=== PATIENT | female | born 1930 | race Caucasian/White ===

== ENCOUNTER 2016-09-27 17:13 | Emergency (ER) | payer MEDICARE, OTHER ==
[~2016-09-27] VITALS: Ht 162.6 cm; Wt 59.1 kg
[~2016-09-27 17:13] MED LIST: AMIO200T PO; APIX5TAB PO; ASCO-294 PO; ASPI-973 PO; CALC600T12 PO; CHOL100045 PO; CYAN500L4 PO; FLAX100038 PO; FOLI0.4T2 PO; IBUP200C PO; LISI10TA PO; MAGN27TA2 PO; METF500T4 PO; METO100T3 PO; SIMV40TA5 PO
[2016-09-27 17:18] VITALS: BP 161/78; PULSE 64; RESP 14; O2SAT 98
--- NOTE | 2016-09-27 17:43 | ED.REPORT ---
HPI-Extremity Problem Upper Date of Service Sep 27, 2016 ED Provider: Mary Aparicio History of Present Illness: fall at home about 3 days ago. did not fall to floor but grabbed support post by window. right wrist pain. right hand dominant. was wearing carpal tunel brace. primary care is aashish tamayo. lives with and son and daughter in law are close by. 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 Nursing Notes Stated Complaint: RIGHT WRIST PAIN Chief Complaint: Extremity Trauma Nursing Notes Reviewed: Yes Allergies: Coded Allergies: morphine (Verified Adverse Reaction, Severe, N/V, 04/30/16) Scheduled Amiodarone (Amiodarone) 200 Mg Tablet 200 MG PO DAILY Apixaban (Eliquis) 5 Mg Tablet 5 MG PO BID Ascorbate Calcium (Vitamin C) 500 Mg Tablet 500 MG PO DAILY Aspirin (Aspirin) 81 Mg Tablet 81 MG PO DAILY Calcium Carbonate (Calcium) 600 Mg Tablet Unknown Dose PO DAILY Cholecalciferol (Vitamin D3) (Vitamin D) 1,000 Unit Capsule 1,000 UNIT PO DAILY Cyanocobalamin (Vitamin B-12) (Vitamin B-12) 500 Mcg Lozenge 500 MCG PO DAILY Flaxseed Oil ([place]-3 Flaxseed Oil) 1,000 Mg Capsule 1,000 MG PO DAILY Folic Acid (Folic Acid) 0.4 Mg Tablet 0.4 MG PO DAILY Lisinopril (Lisinopril) 10 Mg Tablet 10 MG PO HS Magnesium Amino Acid Chelate (Magnesium) 27 Mg Tablet Unknown Dose PO DAILY Metformin (Metformin) 500 Mg Tablet 1,000 MG PO BIDWM Metformin (Metformin) 500 Mg Tablet 500 MG PO DAILYWL Metoprolol Tartrate (Metoprolol Tartrate) 100 Mg Tablet 100 MG PO BID Simvastatin (Simvastatin) 40 Mg Tablet 40 MG PO HS Scheduled PRN Ibuprofen (Ibuprofen) 200 Mg Capsule 400 MG PO QID PRN PRN For Pain General Time Seen by MD: 17:40 Chief Complaint Wrist injury right Hx Obtained From: Patient Onset Occurred: 3 days ago Symptom Duration: Since onset Caused by: Accidental Past Medical History Past Medical History Osteoarthritis Reports: Cancer, Diabetes mellitus, Hypertension Reports: Atrial fibrillation Past Surgical History Left mastectomy Reports: , Cataract surgery Reports: Carpal tunnel, Hip replacement, Knee replacement Family History Noncontributory Social History Other Social History: Good social support, , Local resident 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 09/27/2016 Ambulatory Status Independent Review of Systems Basic Review of Systems Eyes: Vision NL, No discharge Hematologic: No bleeding, No bruising Psychiatric: Normal thought content Physical Exam Initial Vital Signs Vital Signs (First) Date Time Temp Pulse Resp B/P Pulse Ox O2 Delivery O2 Flow Rate FiO2 09/27/16 17:18 36.4 64 14 161/78 98 Room Air Initial VS: Reviewed, Vital signs normal General/Constitutional: Well-developed, Well-nourished Head / Eyes: Atraumatic, Normocephalic, PERRL ENT: Mucous membranes moist, Conjunctiva normal, No scleral icterus Neck: Supple, Non-tender, Full range of motion Respiratory: Breath sounds normal, Clear to auscultation, No respiratory distress Cardiovascular: Regular rate & rhythm, Heart sounds normal, Intact distal pulses Abdomen / GI: Soft, Non-tender, No guarding, No rebound, No distention Back: No CVA tenderness Lymphatic: No lymphadenopathy Lower Extremities: Vascular intact, Neuro intact, No swelling, No tenderness Skin: Warm, Dry, No cyanosis Neurologic: Alert, Oriented, Nonfocal Psychiatric: Mood/affect normal, Behavior normal, Normal thought content General/Constitutional: Awake, Alert, No acute distress, Well appearing, Well developed, Well hydrated, Well nourished Respiratory / Chest: Atraumatic, Breath sounds NL, Breath sounds = bilat Cardiovascular: Heart rate NL, Regular rhythm, Heart sounds NL Upper Extremity / MS: Atraumatic, Inspection NL patient indicates greatest pain is at the inner aspect of the right wrist. Skin is warm red and mildly swollen with streak going up arm. Interpretation & Diagnostics Lab Results Interpretation Result Diagram: 09/27/16180909/27/161809 Test 09/27/16 18:10 White Blood Count 8.8th/mm3 (3.8-10.1) Red Blood Count 3.43mil/mm3 (3.90-5.20) Hemoglobin 10.4g/dL (12.0-15.6) Hematocrit 31.4% (35.0-46.0) Mean Corpuscular Volume 91.5fL (81-100) Mean Corpuscular Hemoglobin 30.3pg (27.0-35.0) Mean Corpuscular Hemoglobin Concent 33.1% (32.0-37.0) Red Cell Distribution Width 14.0% (12.3-15.4) Platelet Count 250bil/L (150-400) Neutrophils (%) (Auto) 73.4% (40-74) Lymphocytes (%) (Auto) 14.0% (14-46) Monocytes (%) (Auto) 9.8% (4-12) Eosinophils (%) (Auto) 2.3% (0-5) Basophils (%) (Auto) 0.3% (0-3) Erythrocyte Sedimentation Rate 38mm/hr (0-40) Sodium Level 133mEq/L (134-144) Potassium Level 5.2mEq/L (3.5-5.2) Chloride Level 98mEq/L (97-108) Carbon Dioxide Level 19mmol/L (18-29) Blood Urea Nitrogen 27mg/dL (8-27) Creatinine 1.41mg/dL (0.57-1.00) Estimat Glomerular Filtration Rate 51mL/min (>59) Glucose Level 316mg/dL (60-99) Lactic Acid Level 1.9mmol/L (0.4-2.0) Calcium Level 9.3mg/dL (8.5-10.1) Total Bilirubin 0.2mg/dL (0.0-1.2) Aspartate Amino Transf (AST/SGOT) 23U/L (0-50) Alanine Aminotransferase (ALT/SGPT) 16U/L (0-32) Alkaline Phosphatase 69U/L (25-165) C-Reactive Protein 0.2mg/dL (0.0-0.5) Total Protein 7.0g/dL (6.4-8.4) Albumin 4.2g/dL (3.4-5.0) X-Ray Interpretation Xray Interpretation: INDICATIONS: 86-year-old female with right wrist injury. TECHNIQUE: For views of the wrist were acquired. COMPARISON: None. FINDINGS: Bones: No acute fractures or dislocations. Nonacute nonunited ulnar styloid avulsion fracture is present. There is moderate 1st carpometacarpal joint degeneration. No suspicious bony lesions. Scaphoid view: Scaphoid appears intact. Soft tissues: There is soft tissue ossification adjacent to the pisiform. IMPRESSION: 1. No acute bony injuries of the right wrist. Nonacute nonunited ulnar styloid avulsion fracture. 2. 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 3. Moderate 1st carpometacarpal joint degeneration. Re-Eval/Medical Decision Med Decision/Clinical Course 86 year old female presents for evualation of right wrist pain. X-ray is negative , however exam indicates a cellulites with lymphangitis. No evidence for thrombosis or hematoma. Discussed with Dr. Tamayo, will see her in follow up, return to ER precautions given. Discussed with Dr. Oneal Counseled Regarding: Diagnosis, When/why to return to ED Discharge & Departure Impression: Primary Impression: Cellulitis Site of cellulitis: extremity Site of cellulitis of extremity: upper extremity Laterality: right Qualified Code: L03.113 - Cellulitis of right upper limb Additional Impression: Lymphangitis Disposition: Home Patient Instructions: Cellulitis (ED) Additional Instructions: Your white count is normal. Blood cultures are pending. The x-ray does not show any sign of a fracture. The exam indicates cellulitis with lymphangitis. Wear the sling to try and decrease movement of your arm. The more you use the arm, the greater the chance of spreading the infection. Continue with keflex 500 mg 4 times a day for 7 days. Use ibuprofen 400 mg up to 2 times a day for discomfort. Please follow with Dr. Tamayo on Wednesday for a recheck. Return to the Er if fever or the redness goes outside the line by more than 1 inch. Referrals: Aashish Tamayo MD (PCP) EDSupervising Provider for APC: Harley Oneal MD copies to: Aashish Tamayo MD, Sue ARNP Sep 27, 2016 17:43
--- NOTE | 2016-09-27 17:54 | DRSVH ---
PROCEDURE: X-RAY RIGHT WRIST COMPLETE, MINIMUM THREE VIEWS ([id number]) INDICATIONS: 86-year-old female with right wrist injury. TECHNIQUE: For views of the wrist were acquired. COMPARISON: None. FINDINGS: Bones: No acute fractures or dislocations. Nonacute nonunited ulnar styloid avulsion fracture is pr esent. There is moderate 1st carpometacarpal joint degeneration. No suspicious bony lesions. Scaphoid view: Scaphoid appears intact. Soft tissues: There is soft tissue ossification adjacent to the pisiform. IMPRESSION: 1. No acute bony injuries of the right wrist. Nonacute nonunited ulnar styloid avulsion fracture. 2. 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 3. Moderate 1st carpometacarpal joint degeneration. Dictated by: Jaime Torres M.D. on 09/27/2016 at 17:50 Approved by: Jaime Torres M.D. on 09/27/2016 at 17:53
--- NOTE | 2016-09-27 17:57 | DRSVH ---
PROCEDURE: X-RAY RIGHT HAND, MINIMUM THREE VIEWS ([id number]) INDICATIONS: 86-year-old female with right hand injury. TECHNIQUE: 3 views of the hand(s) acquired. COMPARISON: [facility], CR, XR WRIST 3VW RT, 09/27/2016, 17:21. FINDINGS: Bones: No acute fractures or dislocations. Nonacute nonunited ulnar styloid avulsion fracture is pr esent. Carpal bones are normally aligned. there is multi focal proximal and distal interphalangeal joint degeneration, as well as moderate 1st carpometacarpal joint degeneration. No suspicious bony lesions. Soft tissues: There is soft tissue ossification adjacent to the pisiform. IMPRESSION: 1. No acute bony injuries of the right hand. Nonacute nonunited avulsion fracture of the ulnar styl oid process. 2. Multi focal 1st carpometacarpal, proximal and distal interphalangeal joint degeneration. Dictated by: Jaime Torres M.D. on 09/27/2016 at 17:53 Approved by: Jaime Torres M.D. on 09/27/2016 at 17:55
[2016-09-27] MEDS ORDERED: cefTRIAXone Inj 1,000 MG in Dextrose 5% Minibag Plus 50 ML IV ONE (18:00)
[2016-09-27 18:27] LABS: BASOPHILS % (AUTO) 0.3 % (0-3); EOSINOPHILS % (AUTO) 2.3 % (0-5); MONOCYTES % (AUTO) 9.8 % (4-12); Mean Corpuscular Hemoglobin 30.3 pg (27.0-35.0); Mean Corpuscular Volume 91.5 fL (81-100); NEUTROPHILS % (AUTO) 73.4 % (40-74); Platelet Count 250 bil/L (150-400)
[2016-09-27 19:08] LABS: ERYTHROCYTE SEDIMENTATION RATE 38 mm/hr (0-40)
[2016-09-27 20:05] VITALS: BP 144/111; PULSE 66; RESP 16; O2SAT 98
== END 2016-09-27 20:06 | disposition home or self-care (01) ==
LOC: SED 17:13
DX: L03.113 Cellulitis of right upper limb (principal); I89.1 Lymphangitis; W18.30XA Fall on same level, unspecified, initial encounter; Y93.9 Activity, unspecified; Y92.009 Unspecified place in unspecified non-institutional (private) residence as the place of occurrence of the external cause; Y99.9 Unspecified external cause status; I10 Essential (primary) hypertension; E11.9 Type 2 diabetes mellitus without complications; Z85.9 Personal history of malignant neoplasm, unspecified
CPT/HCPCS: 36415; 73110; 73130; 80053; 83605; 85025; 85651; 86140; 87040; 96365; 99284; J0696

== ENCOUNTER 2016-12-30 14:17 | Inpatient (IN) | payer MEDICARE, OTHER ==
[~2016-12-30] VITALS: Ht 165.1 cm; Wt 58.6 kg
[2016-12-30 14:29] VITALS: BP 159/62; PULSE 57; RESP 12; O2SAT 98
--- NOTE | 2016-12-30 14:30 | PCM.EDPN ---
ED Note Date of Service Dec 30, 2016 This patient was sent from urgent care, she is been feeling dizzy over the past 2 weeks and much worse over the past 2 days. On their initial evaluation she had a heart rate of 28, an ambulance was called to transport her to the ER. Upon arrival here the patient's heart rate is in the 50s and she does not currently have any complaints. Patient was recently started on flecainide and she is on metoprolol as well. She is a history of atrial flutter cardioversion. Her EKG looks a possible junctional rhythm, and currently awaiting her new EKG. The patient will be signed out to the next physician Dr. Anthony. Ekta Glover MD Dec 30, 2016 14:30
[2016-12-30 14:35] LABS: BASOPHILS % (AUTO) 0.4 % (0-3); EOSINOPHILS % (AUTO) 3.3 % (0-5); Mean Corpuscular Hemoglobin 29.6 pg (27.0-35.0); Mean Corpuscular Volume 93.4 fL (81-100); NEUTROPHILS % (AUTO) 64.9 % (40-74); Platelet Count 255 bil/L (150-400)
--- NOTE | 2016-12-30 14:48 | DRSVH ---
PROCEDURE: X-RAY CHEST ONE VIEW, PORTABLE ([id number]) INDICATIONS: dizzy TECHNIQUE: One view of the chest was acquired. COMPARISON: [facility], CR, XR CHEST 2VW, 12/07/2016, 12:48. [facility], CR , XR CHEST 1VW (PORTABLE), 04/30/2016, 3:58. FINDINGS: Surgical changes and devices: Surgical clips in the left axilla. There is left mastectomy. Lungs and pleura: No pleural effusions or pneumothorax. Lungs are clear. Mediastinum: Mediastinal contours appear normal. Heart size is mildly increased. There is dense mi tral annular calcification. Bones and chest wall: No suspicious bony lesions. Overlying soft tissues appear unremarkable. IMPRESSION: Mild cardiomegaly and dense mitral annular calcification. Dictated by: Jesika Spangler M.D. on 12/30/2016 at 14:45 Approved by: Jesika Spangler M.D. on 12/30/2016 at 14:46
[2016-12-30 15:02] LABS: TROPONIN T < 0.010 ug/L (0.0-0.011)
[2016-12-30 15:08] LABS: Magnesium 1.7 mg/dL (1.6-2.6)
--- NOTE | 2016-12-30 15:19 | ED.REPORT ---
HPI-General Illness Date of Service Dec 30, 2016 ED Provider: Suresh Anthony MD An 86 year old female with a history of diabetes mellitus, hypertension, A-fib and previous atrial flutter requiring cardioversion presents to the ED via EMS with dizziness that initially began 2 weeks ago but became increasingly worse this afternoon. Patient was seen at Urgent Care just prior to arrival and they recorded a pulse of 28 upon arrival. Upon initial evaluation in the ED, heart rate is in the 50's and she reportedly feels fatigued. The episodes of vertigo for the past 2 weeks have often been brought on by postural changes and activity. Patient recently began taking 100 mg flecainide approx. 4 weeks ago and she is currently on metoprolol, Eliquis, and amlodipine as well. Patient recently had bronchitis and reports some recent SOB that is associated with exertion. Daughter reports recent GLF 3 days ago and patient denies any head injury or LOC. Patient denies any recent recorded fevers, chest pain or headache. Nursing Notes Stated Complaint: LOW HEART RATE,DIZZINESS Chief Complaint: Dysrhythmia/Cardiac Nursing Notes Reviewed: Yes Allergies: Coded Allergies: morphine (Verified Adverse Reaction, Severe, N/V, 04/30/16) Scheduled Amlodipine (Amlodipine) 10 Mg Tablet 10 MG PO DAILY Apixaban (Eliquis) 5 Mg Tablet 5 MG PO BID Atorvastatin (Lipitor) 20 Mg Tablet 20 MG PO DAILY Flecainide Acetate (Flecainide Acetate) 50 Mg Tablet 100 MG PO BID Levothyroxine (Levothyroxine) 50 Mcg Tablet 50 MCG PO DAILY Metformin (Metformin) 500 Mg Tablet 1,000 MG PO BIDWM Metformin (Metformin) 500 Mg Tablet 500 MG PO DAILYWL Metoprolol Tartrate (Metoprolol Tartrate) 100 Mg Tablet 100 MG PO BID General Time Seen by MD: 15:18 Chief Complaint Dizziness Hx Obtained From: Patient Arrived By: Ambulance Sudden in Onset?: No Onset Occurred: More than a week ago... (2 weeks) Symptom Duration: Since onset Associated with: Reports: Dizziness, Shortness of breath, Denies: Chest pain, Fever, Headache Pertinent Negative: Pt denies other symptoms Exacerbated by: Standing up Recent Healthcare: No recent hospitalization, Recent doctor visit Past Medical History Past Medical History Notes: PCP: Dr. Aashish Tamayo MD Immigration Law Specialist: Dr. 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 09/27/2016 Ambulatory Status Independent Review of Systems Full Review of Systems Constitutional: Reports: Fatigue, Denies: Chills, Fever Respiratory: Reports: Dyspnea on exertion, Shortness of breath Cardiovascular: Denies: Chest pain Neurologic: Reports: Dizziness, Denies: Change LOC, Headache Complete sys rev & neg: except as marked. Physical Exam Vital Signs Vital Signs Date Time Temp Pulse Resp B/P Pulse Ox O2 Delivery O2 Flow Rate FiO2 12/30/16 15:30 56 15 170/67 95 Room Air 12/30/16 14:29 36.6 57 12 159/62 98 Room Air Initial VS: Reviewed Extremities: Vascular intact, Neuro intact, No swelling, No tenderness Skin: Warm, Dry, No cyanosis Psychiatric: Mood/affect normal, Behavior normal, Normal thought content General/Constitutional: Awake, Alert, No acute distress Head / Eyes: Atraumatic, Normocephalic, PERRL, EOMI Neck: Atraumatic, Supple Neck Vascular: Positive: Carotid bruit L (Vs. transmitted murmur ) Respiratory / Chest: Atraumatic, Breath sounds NL, Breath sounds = bilat, No respiratory distress Cardiovascular: Regular rhythm, No gallop, No murmurs, No rubs Heart Rate / Rhythm: Positive: Bradycardia (50's) Heart Sounds / Murmur: Positive: Systolic murmur present.. (III/: R Upper sternal border) Abdomen: Atraumatic, Soft, Non-tender, BS normoactive, No distention Neurologic: Oriented X3, Speech NL, No motor deficits, No sensory deficits, CN II - XII intact (No facial asymmetry ), Reflexes equal bilat Interpretation & Diagnostics Urgent Care EKG Bradycardia with rate of 28 bpm No P waves Lab Results Interpretation Result Diagram: 12/30/16 1433 12/30/16 1433 Test 12/30/16 14:32 12/30/16 14:33 12/30/16 15:20 White Blood Count 8.9th/mm3 (3.8-10.1) Red Blood Count 3.48mil/mm3 (3.90-5.20) Hemoglobin 10.3g/dL (12.0-15.6) Hematocrit 32.5% (35.0-46.0) Mean Corpuscular Volume 93.4fL (81-100) Mean Corpuscular Hemoglobin 29.6pg (27.0-35.0) Mean Corpuscular Hemoglobin Concent 31.7% (32.0-37.0) Red Cell Distribution Width 14.9% (12.3-15.4) Platelet Count 255bil/L (150-400) Neutrophils (%) (Auto) 64.9% (40-74) Lymphocytes (%) (Auto) 23.3% (14-46) Monocytes (%) (Auto) 8.0% (4-12) Eosinophils (%) (Auto) 3.3% (0-5) Basophils (%) (Auto) 0.4% (0-3) Sodium Level 133mEq/L (134-144) Potassium Level 5.5mEq/L (3.5-5.2) Chloride Level 98mEq/L (97-108) Carbon Dioxide Level 18mmol/L (18-29) Blood Urea Nitrogen 31mg/dL (8-27) Creatinine 1.35mg/dL (0.57-1.00) Estimat Glomerular Filtration Rate 53mL/min (>59) Glucose Level 158mg/dL (60-99) Calcium Level 9.3mg/dL (8.5-10.1) Magnesium Level 1.7mg/dL (1.6-2.6) Total Bilirubin 0.2mg/dL (0.0-1.2) Aspartate Amino Transf (AST/SGOT) 26U/L (0-50) Alanine Aminotransferase (ALT/SGPT) 24U/L (0-32) Alkaline Phosphatase 62U/L (25-165) Pro-B-Type Natriuretic Peptide 6086pg/mL (0-738) Total Protein 7.5g/dL (6.4-8.4) Albumin 4.2g/dL (3.4-5.0) Hold Urine Received (Received) ECG Interpretation ECG Interpretation: Sinus rhythm Rate 56 Prologed WY interval IVCD Anterior infarct No acute infarct IVCD and Prolonged WY interval new from 10/6/16 Time: 15:48 Interpreted by: ED physician X-Ray Chest Interpretation Chest Xray Interpretation: IMPRESSION: Mild cardiomegaly and dense mitral annular calcification. Dictated by: Jesika Spangler M.D. on 12/30/2016 at 14:45 Interpretation / Wet Read by: Interpret - Radiologist Re-Eval/Medical Decision Med Decision/Clinical Course 86-year-old female with near syncope and profound bradycardia earlier in the day. She been symptomatic with dizziness for quite some time. Additionally she is a type II diabetic and reports her sugars have been high and the cause for this is not clear. The bradycardia documented on the ECG tracing from urgent care is profound and without P waves. Here she is in sinus rhythm but has a new first-degree AV block and new intraventricular conduction delay. She is on flecainide and metoprolol. Will be admitted to the hospitalist service with cardiology consult thing and metoprolol will be held. Time of Eval: 15:44 Re-Evaluation/Progress Note: Patient is resting comfortably and is informed of the intended treatment plan to admit due to her bradycardia. Code status is discussed in the presence of the patient's and daughter. Patient would like to be full code. She understands and agrees with the intended treatment plan. Time of Eval: 16:31 Patient Status: Condition improved Re-Evaluation/Progress Note: Patient is rechecked. She is informed of her chest x-ray result and lab results. All questions are addressed at this time. Consultation #1: Referral / Consult Name: Tomi Bravo MD Consulted With: Cardiology Call Returned at: 15:50 E [employer] Merchant: Will see patient, Agrees with eval, Agrees with plan Note: Recommends holding Metoprolol Consultation #2: Referral / Consult Name: Mio Jones MD Consulted With: Hospitalist Call Returned at: 16:30 E [employer]: Will see patient, Agrees with eval, Agrees with plan, Accepts admit Counseled Regarding: Diagnosis, Lab results, Need for admission Discharge & Departure Primary Impression: Symptomatic bradycardia Disposition: ADMITTED TO HOSPITAL Discharge Condition All VS Reviewed: Yes Condition: Stable Referrals: Aashish Tamayo MD (PCP) Scribe Attestation Portions of this note were transcribed by Valentin Montanez. IDr. Anthony personally performed the history, physical exam and medical decision-making; I reviewed and confirmed the accuracy of the information in the transcribed note. Signed by: Yoana Ba, 12/30/16 [id number]. copies to: Aashish Tamayo MD, Donald L MD Dec 30, 2016 15:19 VALENTIN MONTANEZ Dec 30, 2016 15:22
[2016-12-30 15:30] VITALS: BP 170/67; PULSE 56; RESP 15; O2SAT 95
[2016-12-30] MEDS ORDERED: FLC50T PO (16:09)
[2016-12-30] MEDS ORDERED: Ondansetron 2 mg/mL 2 mL Inj IVPUSH PRN (16:35)
[2016-12-30] MEDS ORDERED: Alum-Mag Hydrox-Simeth 30 mL Suspension PO PRN (16:35)
[2016-12-30] MEDS ORDERED: Senna-Docusate 8.6-50 mg Tablet PO PRN (16:40)
[2016-12-30] MEDS ORDERED: Atropine 1 mg/10 mL (Code) Syringe IVPUSH PRN (16:40)
[2016-12-30] MEDS ORDERED: Polyethylene Glycol (PEG) 17 Gm Powder PO PRN (16:40)
[2016-12-30] MEDS ORDERED: ATOR20TA PO (16:44)
[2016-12-30] MEDS ORDERED: AMLO10TA3 PO (16:44)
[2016-12-30] MEDS ORDERED: LEVO50TA6 PO (16:44)
[2016-12-30 16:47] VITALS: BP 136/72; PULSE 60; RESP 14; O2SAT 98
--- NOTE | 2016-12-30 16:54 | PCM.HPMED ---
Subjective Date of Service Dec 30, 2016 Primary Provider: Admitting Physician: Primary Care Physician: Aashish Tamayo MD Attending Physician: Chief Complaint: Dizziness, low heart rate History of Present Illness: 86-year-old female who came into the urgent care for issues with her blood sugar that she been seeing has been running in the 400s as been going on for weeks. She mentioned to them that O by the way she has been having dizziness but that has been intermittent since her cardioversion February 2016. She did note that it was getting a little worse and then from time to time she would have to put her head between her knees because she was "dizzy". When I tried to press her whether the world was spinning or whether she felt like she passed out she definitely did not feel like the world was spinning but she did not give good symptoms for near syncope either. In the urgent care she was found to have a heart rate in the 20s and the systolic blood pressure around 100. She denied chest pain, dyspnea, nausea or vomiting related to that she was "dizzy" at the time. Review of Systems: Gen.: No fevers chills weight loss weight gain Eyes: no visual disturbances or blurring vision HEENT: No nose/throat drainage, no pain in ears or throat, no hearing loss Lymph: No lymph nodes noted Cardiac: No chest pain, orthopnea, PND, palpitations , pedal edema or dyspnea on exertion, + low heart rate Pulmonary: no cough, wheezing or bringing up of sputum GI: No anorexia nausea vomiting blood or black in the stool : no dysuria hematuria urinary frequency or decrease in urine output Musculoskeletal: Joint swelling no joint pain no new muscle aches or back pain Neuro: No syncope, seizures no loss of consciousness no new focal weakness, numbness or tingling + Dizzy maybe closer to near syncope Psychiatric: New new anxiety insomnia or depression Endocrine: No new heat or cold intolerances polyuria or polydipsia Hematology: No lymphadenopathy or easy bleeding or bruising noted skin: No new rashes, stasis dermatitis Allergies Coded Allergies: morphine (Verified Adverse Reaction, Severe, N/V, 04/30/16) Home Medications Apixaban (Eliquis) 5 Mg Tablet 5 MG PO BID Flecainide Acetate (Flecainide Acetate) 50 Mg Tablet 50 MG PO DAILY Lisinopril (Lisinopril) 10 Mg Tablet 10 MG PO HS Metformin (Metformin) 500 Mg Tablet 1,000 MG PO BIDWM Metformin (Metformin) 500 Mg Tablet 500 MG PO DAILYWL Metoprolol Tartrate (Metoprolol Tartrate) 100 Mg Tablet 100 MG PO BID Simvastatin (Simvastatin) 40 Mg Tablet 40 MG PO HS PMH Paroxysmal atrial fibrillation, type 2 diabetes mellitus, essential hypertension, hypercholesteremia, h Hx left breast cancer, s/p mastectomy w/o chemo/XRT Surg L mastectomy, appendicectomy, left knee arthroplasty, right hip replacement, bilateral carpal tunnel surgery. FAMILY HISTORY: Her mom lived to be in her 80s. Her dad around the age of 50 from liver cancer. Social History- Other Social History: Good social support, since about 1950, Local resident lives with who has parkinson's she is caregiver. 09/27/2016 No tobacco or alcohol. She says her son is her power of immigration attorney. She is normally fairly functional. Ambulatory Status Independent Social History Hx Alcohol Use: No Alcoholic Drinks Per Day: 0 Hx Substance Use: No Exam Vital Signs Vital Sign - Last Date Time Temp Pulse Resp B/P Pulse Ox O2 Delivery O2 Flow Rate FiO2 12/30/16 15:30 56 15 170/67 95 Room Air 12/30/16 14:29 36.6 Exam Gen.- A+ O 3 no apparent distress. Sturdy elderly female sitting up in bed eating dinner Eyes- open conjunctiva clear, pupils equal nonicteric Mouth- oral mucosa moist, no exudate ENT- ears normal, nose normal Neck- supple/trach midline CVS- RRR no murmur or gallop Lungs CTA GI- NABS/NT soft Musc- moving 4 no obvious deformity Neuro- cranial nerves II through XII intact to gross examination, nonfocal Skin- warm and dry, no rashes/lesions/wounds noted Psych- pleasant and appropriate, Lab and Diagnostics Result Diagram: 12/30/16 1433 12/30/16 1433 X-Rays, CTs and MRIs X-RAY CHEST ONE VIEW: Jesika Spangler M.D. on 12/30/2016 at 14:46 IMPRESSION: Mild cardiomegaly and dense mitral annular calcification. Approved by: Jesika Spangler M.D. on 12/30/2016 at 14:46 12-lead ECG Rate 56, QTC 488 ms concurrently reviewed by Robert 6/7 * Sinus bradycardia . Prolonged MA interval . Probable left atrial enlargement . IVCD, consider atypical RBBB . Left anterior fascicular block * Consider anterior infarct . When compared with ECG of 30-Apr-2016 5:36:02, * Heart rate has decreased * MA interval has increased * Criteria for atypical RBBB is more prominent Cardiac Echo Impressions WES: Alvarado Marte on 03/03/2016 02:41 1) No thrombus is detected in the left atrial appendage. Decreased inflow/outflow velocities in the left atrial appendage. 2) The left atrium is severely dilated. 3) Moderate mitral regurgitation present. 4) Trileaflet aortic valve present with trace aortic regurgitation 5) Mild to moderate tricuspid regurgitation present. 6) Mild atherosclerosis of the descending aorta. After WES showed no left atrial appendage thrombus, patient proceeded with DCCV with synchronized 200J and her rhythm successfully converted from atypical atrial flutter to sinus rhythm. See separate procedure report for further details. Reading Physician:PM Echocardiogram Report: Peter Corrales on 02/28/2016 03:57 The left ventricle is normal in size. Left ventricular ejection fraction is estimated to be 55 +/- 5%. The right ventricle is normal in size and function. Both atria are severely dilated. There is severe mitral annular calcification. Heavy calcification of the posterior mitral annulus, extending in the chordae as well as to the lateral wall. A small calcified mobile structure seen attached to the ventricular surface of this bulky posterior mitral annulus calcification, appears to be torn or redundant chordae. There is moderate mitral stenosis. The mitral valve mean gradient is 5.2 mmHg. There is moderate to severe mitral regurgitation. The aortic valve is moderately calcified. A bicuspid aortic valve cannot be excluded. Leaflet mobility is mildly reduced. There is no hemodynamically significant valvular aortic stenosis. There is mild aortic regurgitation. There is moderate tricuspid regurgitation. The right ventricular systolic pressure is estimated at 46 mmHg assuming a right atrial pressure of 15 mm Hg. There is moderate pulmonary hypertension. There is a small pericardial effusion noted. There are no echocardiographic or Doppler indications for cardiac tamponade. Reading Physician:PM Assessment & Plan 86-year-old female admitted with symptomatic bradycardia through emergency room 12/30 #Bradycardia-symptomatic question escobar also check orthostatics for dizziness -r/o VA by enzymes -hold metoprolol, continue flecainide -Cardiology consulted from ED #Dizzy-physical therapy and orthostatics #NIDDM,Hyperglycemia-glucose in the 150s here if it does not rise and recommend the patient check her glucometer -Continue metformin -Low-dose sliding scale -A1c #Hyperkalemia?CKD3-baseline creatinine probably about 1.3, -giving a dose of Kayexalate 15 g, -not hydrating because of CHF elevated BNP on the patient is asymptomatic and probably could tolerate fluid. -Follow BMP in the a.m. #afib, HTN/lipids- continue home meds except for metoprolol -anticoagulation with Apixiban, flecainide for A. fib control -Amlodipine for BP control -Continue statin #Hypothyroidism-continue current dose of Levoxyl check TSH and free T4 #Prophylaxis- DVT not indicated patient on NOAC-apixaban, GI not indicated #Disposition patient from independent living full code Mio Jones MD Dec 30, 2016 16:54
[2016-12-30 16:56] LABS: APPEARANCE,URINE CLEAR (CLEAR,HAZY); COLOR,URINE YELLOW (YELLOW); PH,URINE 5.5 (5.0-8.0)
[2016-12-30 16:57] LABS: OCCULT BLOOD,URINE NEGATIVE (NEGATIVE); UROBILINOGEN,URINE NORMAL (NORMAL)
--- NOTE | 2016-12-30 17:05 | NUR ---
Admit: Patient arrived to [facility] @ approx 1700 via stretcher. Transferred from stretcher to BSC then to bed. Stand up weight obtained. Patient complained of dizziness when standing. Family at bedside. Alert & oriented. Oriented to room and call light system. History of GLF three days ago, bed rail up x 2, yellow non-skid socks on, Christian alarm in place, call light within reach, discussed with patient and family to call for assistance to BSC. Verbalized agreement. Denies pain, complained of SOB with activity.
[2016-12-30 17:09] VITALS: PULSE 59
[2016-12-30 17:14] VITALS: BP 154/71; PULSE 59; RESP 16; O2SAT 97
--- NOTE | 2016-12-30 17:36 | NUR ---
Telemetry: Notified by awake overnight monitor, patient had 2.18 second pause @ 1720, SB 50s, 1st degree AVB, IVCD, PACs per awake overnight monitor. text paged at 0716.
[2016-12-30] MEDS ORDERED: Glucose 40% Oral Gel 15 Gm Tube PO PRN (19:15)
[2016-12-30] MEDS ORDERED: Dextrose 10% 250 ML in IV Bag 1 EACH IV PRN (19:15)
[2016-12-30] MEDS ORDERED: cloNIDine 0.1 mg Tablet PO PRN (19:25)
[2016-12-30 20:27] VITALS: BP 150/69; PULSE 55; RESP 18; O2SAT 95
[2016-12-30] MEDS: Insulin LISPRO 300 Unit/3 mL Inj SUBQ SCH (20:52)
[2016-12-31] VITALS (7 sets, daily range): BP systolic 123–154; BP diastolic 58–77; PULSE 52–63; RESP 14–16; O2SAT 96–97
[2016-12-31] MEDS: Sodium Chloride LOK Flush 10 mL Syringe IVFLUSH SCH ×2 (00:35→08:34)
--- NOTE | 2016-12-31 03:37 | NUR ---
PT ACTIVITY/HR Pt has been using BSC w/ SBA tonight. Pt has denied any pain or discomfort. Pt states that her dizziness has improved throughout the night. HR has mostly remained in 50s tonight. No significant drop in HR has been reported to RN from account technician. Continue to monitor. Call light in reach. Bed alarm on. Family in room. Intentional rounding.
[2016-12-31 06:02] LABS: BASOPHILS % (AUTO) 0.7 % (0-3); MONOCYTES % (AUTO) 10.5 % (4-12); Mean Corpuscular Hemoglobin 29.9 pg (27.0-35.0); Mean Corpuscular Volume 91.9 fL (81-100); NEUTROPHILS % (AUTO) 57.7 % (40-74); Platelet Count 228 bil/L (150-400)
[2016-12-31] MEDS: Insulin LISPRO 300 Unit/3 mL Inj SUBQ SCH ×2 (07:51→11:39)
--- NOTE | 2016-12-31 11:17 | NUR ---
Evaluation completed. Please go to "Notes" then click on "Assessments and Notes" (bottom left corner of screen). Then select appropriate discipline tab on top of screen.
[2016-12-31] MEDS ORDERED: METO50TA3 PO (11:40)
[2016-12-31] MEDS ORDERED: APIX2.5T PO (11:40)
[2016-12-31] MEDS ORDERED: FLC50T PO (11:40)
--- NOTE | 2016-12-31 11:47 | PCM.DIMED ---
Discharge Instructions Date of Service Dec 31, 2016 Dates of Hospitalization Dec 30, 2016 at 16:32 Discharge Diagnosis Discharge Diagnosis # Acute symptomatic bradycardia. Present on admission. Improved. Likely due to medication side effect. # Dizzy due to underlying bradycardia and orthostatic hypotension. Present on admission. Improved. # Acute kidney injury. Present on admission. Likely due to dehydration. Resolved # Acute hyperkalemi. Present on admission. Resolved. # Chronic diabetes mellitus - likely poorly controlled as outpatient with HgA1C 9.7 # Chronic Atrial-Fibrillation. Stable. # Hypothyroidism Diet Discharge Diet: Low fat, Low Sodium, Heart Healthy, Diabetic Activity Discharge Activity: No restrictions Call your provider Call your provider for: Fever or Chills, Shortness of breath, Bleeding, Chest pain, Vomitting, Excessive diarrhea Patient Instructions Patient Instructions Seek immediate medical attention if any new or worsening signs or symptoms occur. Follow-up plan 1. Followup with primary care provider in 5-7 days and for followup and further management of diabetes. 2. Followup with your sand carrier () in 4-5 weeks as previously scheduled. Follow-up Provider: Aashish Tamayo MD Provider: Alvarado Marte MD, Masoud Dec 31, 2016 11:47
--- NOTE | 2016-12-31 11:51 | CONS ---
[address] [address] CONSULTATION REPORT PATIENT: TELMA VILLALOBOS : 1930 MR#: [id number] ADMIT: 12/30/2016 JOB ID: [id number] DATE OF SERVICE: 12/31/2016 CARDIOLOGY CONSULTATION: I have been asked by the hospitalist to see the patient who was admitted through the emergency department last night with symptomatic bradycardia. The patient has been on antiarrhythmic drug therapy with flecainide and metoprolol in addition to anticoagulation with Eliquis since presenting last year with symptomatic atrial fibrillation. She was seen recently by Dr. Marte in the office and was doing well with her atrial fibrillation medication. Over the last two weeks, however, she has been aware of intermittent episodes of feeling weak and lightheaded or "dizzy." It has also been notable that her blood sugar has been markedly elevated over the past couple of weeks in the 400-500 range on occasion. She was treated with antibiotics for an acute bronchitis about a month ago and had side effects with prominent sunburn and rash over her face and hands but that has cleared up. She has not been syncopal and has not been aware of any recent episodes of recurrent atrial fibrillation. After she presented to the emergency department yesterday, her metoprolol was discontinued and overnight and this morning her rhythm is a sinus rhythm in the 50-60 range. On reviewing her EKG changes in our office, it is clear that her LA interval and QRS duration has significantly increased over the last 3-4 months. DATE OF SERVICE: MEDICAL REVIEW OF SYSTEMS AND PAST MEDICAL HISTORY: Well reviewed in the current hospital H and P and I have nothing further to contribute. PHYSICAL EXAMINATION: Shows a kyara 86-year-old female in no distress. Her cardiovascular examination is notable for normal central venous pressure. She has a normal heart rate with a widely split second heart sound and a grade 3/6 murmur of mitral insufficiency. Distal extremities are warm and well perfused without edema. EKGs and office medical records are reviewed. IMPRESSION: This patient is symptomatic from the combination of flecainide and higher dose metoprolol. I think it is reasonable for her to be discharged home at this point. I would start her back up on 50 mg of metoprolol daily starting tomorrow and will reduce her flecainide therapy to 50 mg b.i.d. In addition, because of her age and weight, she should be on 2.5 mg of Eliquis b.i.d. and not 5 mg daily. She has an appointment already scheduled with Dr. Marte next month and he can followup on these medication adjustments at that time. I appreciate seeing this patient in consultation. I have spoken with the hospitalist regarding these recommendations and he will be making arrangements for her to be discharged home today.
--- NOTE | 2016-12-31 13:00 | NUR ---
Discharge Pt discharged home with daughter via private vehicle. Pt alert and oriented x 4, verbalized understanding of discharge and new Rx instructions. Personal belongings accounted for and left with pt.
--- NOTE | 2016-12-31 13:38 | NUR ---
Social Work: Brief Note / D/C Data: Pt is an 86 y/o female admitted for symptomatic pbradycardia. Pt's PCP is Dr Tamayo, pt's insurance is Medicare with [employer] plan supp. Readmit score is 2, low. EMR reviewed. Pt discharged this early afternoon before [employer] TECHNICIAN could meet with pt for initial assessment. Per pt's previous visit, pt resides in [place] with her spouse, children live within half mile of home. 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 Pt does not use DME, but has walker, cane and w/c for spouse. Pt states that home has w/c ramp, handle/grab bars and is set up for single story living. Pt has no hx of SNF or HH, but states that she had home infusion services "about 10 years ago". AD in EMR. No d/c planning needs at this time. Assessment: Pt who is independent at baseline. Plan: Pt discharged home today via POV with family. o d/c planning needs at this time. TERESA Prado
--- NOTE | 2016-12-31 19:27 | PCM.DC.MED ---
Discharge Summary Date of Service Dec 31, 2016 Dates of Hospitalization Date of Hospital Admission Dec 30, 2016 at 16:32 Date of Discharge: Dec 31, 2016 Providers: Admitting Physician: Mio Jones MD Primary Care Physician: Aashish Tamayo MD Attending Physician: Mio Jones MD Diagnosis at Time of Discharge Diagnosis at Time of Discharge # Acute symptomatic bradycardia. Present on admission. Improved. Likely due to medication side effect. # Dizzy due to underlying bradycardia and orthostatic hypotension. Present on admission. Improved. # Acute kidney injury. Present on admission. Likely due to dehydration. Resolved # Acute hyperkalemi. Present on admission. Resolved. # Chronic diabetes mellitus - likely poorly controlled as outpatient with HgA1C 9.7 # Chronic Atrial-Fibrillation. Stable. # Hypothyroidism Consultations 1. Cardiology Procedures XRay, CTs & MRIs X-RAY CHEST ONE VIEW: Jesika Spangler M.D. on 12/30/2016 at 14:46 IMPRESSION: Mild cardiomegaly and dense mitral annular calcification. Approved by: Jesika Spangler M.D. on 12/30/2016 at 14:46 ECG 12 Lead Rate 56, QTC 488 ms concurrently reviewed by Robert 12/30 * Sinus bradycardia . Prolonged OR interval . Probable left atrial enlargement . IVCD, consider atypical RBBB . Left anterior fascicular block * Consider anterior infarct . When compared with ECG of 30-Apr-2016 5:36:02, * Heart rate has decreased * OR interval has increased * Criteria for atypical RBBB is more prominent Cardiac Echo Impression WES: Alvarado Marte on 03/03/2016 02:41 1) No thrombus is detected in the left atrial appendage. Decreased inflow/outflow velocities in the left atrial appendage. 2) The left atrium is severely dilated. 3) Moderate mitral regurgitation present. 4) Trileaflet aortic valve present with trace aortic regurgitation 5) Mild to moderate tricuspid regurgitation present. 6) Mild atherosclerosis of the descending aorta. After WES showed no left atrial appendage thrombus, patient proceeded with DCCV with synchronized 200J and her rhythm successfully converted from atypical atrial flutter to sinus rhythm. See separate procedure report for further details. Reading Physician:AIBDA Echocardiogram Report: Peter Corrales on 02/28/2016 03:57 The left ventricle is normal in size. Left ventricular ejection fraction is estimated to be 55 +/- 5%. The right ventricle is normal in size and function. Both atria are severely dilated. There is severe mitral annular calcification. Heavy calcification of the posterior mitral annulus, extending in the chordae as well as to the lateral wall. A small calcified mobile structure seen attached to the ventricular surface of this bulky posterior mitral annulus calcification, appears to be torn or redundant chordae. There is moderate mitral stenosis. The mitral valve mean gradient is 5.2 mmHg. There is moderate to severe mitral regurgitation. The aortic valve is moderately calcified. A bicuspid aortic valve cannot be excluded. Leaflet mobility is mildly reduced. There is no hemodynamically significant valvular aortic stenosis. There is mild aortic regurgitation. There is moderate tricuspid regurgitation. The right ventricular systolic pressure is estimated at 46 mmHg assuming a right atrial pressure of 15 mm Hg. There is moderate pulmonary hypertension. There is a small pericardial effusion noted. There are no echocardiographic or Doppler indications for cardiac tamponade. Reading Physician:PM Brief History As noted in H&P by Dr. Jones: 86-year-old female who came into the urgent care for issues with her blood sugar that she been seeing has been running in the 400s as been going on for weeks. She mentioned to them that O by the way she has been having dizziness but that has been intermittent since her cardioversion February 2016. She did note that it was getting a little worse and then from time to time she would have to put her head between her knees because she was "dizzy". When I tried to press her whether the world was spinning or whether she felt like she passed out she definitely did not feel like the world was spinning but she did not give good symptoms for near syncope either. In the urgent care she was found to have a heart rate in the 20s and the systolic blood pressure around 100. She denied chest pain, dyspnea, nausea or vomiting related to that she was "dizzy" at the time. Hospital Course # Acute symptomatic bradycardia. Present on admission. Improved. Likely due to medication side effect. - seen by cardiology consult (Dr. Bravo) and cleared for d/c home with recommendation for decrease in home medications (as noted below) # Dizzy due to underlying bradycardia and orthostatic hypotension. Present on admission. Improved. # Acute kidney injury. Present on admission. Likely due to dehydration. - Resolved with IV fluid # Acute hyperkalemi. Present on admission. - Resolved. # Chronic diabetes mellitus - likely poorly controlled as outpatient with HgA1C 9.7 - Will defer further followup and management to PCP as outpatient - Her blood glucose remained fairly well controlled during this hospital and that is why she was not started on any additional medications during this hospital. # Chronic Atrial-Fibrillation. Stable. # Hypothyroidism. Stable. by day of discharge lungs CTA bilat. Abdomen soft, nt, nd, +bs. Exam Vital Signs (Last) Date Time Temp Pulse Resp B/P Pulse Ox O2 Delivery O2 Flow Rate FiO2 12/31/16 10:30 36.4 60 16 131/58 97 Room Air Test 12/30/16 14:32 12/30/16 14:33 12/30/16 15:20 12/30/16 16:36 Hemoglobin A1c 9.7% (4.8-5.6) Magnesium Level 1.7mg/dL (1.6-2.6) Total Bilirubin 0.2mg/dL (0.0-1.2) Aspartate Amino Transf (AST/SGOT) 26U/L (0-50) Alanine Aminotransferase (ALT/SGPT) 24U/L (0-32) Alkaline Phosphatase 62U/L (25-165) Pro-B-Type Natriuretic Peptide 6086pg/mL (0-738) Total Protein 7.5g/dL (6.4-8.4) Albumin 4.2g/dL (3.4-5.0) Hold Urine Received (Received) Urine Color Yellow (YELLOW) Urine Appearance Clear (CLEAR,HAZY) Urine pH 5.5 (5.0-8.0) Urine Specific [place] 1.015 (1.003-1.035) Urine Protein Tracemg/dL (NEG,TRACE) Urine Glucose (UA) 250mg/dL (NEGATIVE) Urine Ketones Negativemg/dL (NEGATIVE) Urine Occult Blood Negative (NEGATIVE) Urine Nitrite Negative (NEGATIVE) Urine Bilirubin Negative (NEGATIVE) Urine Urobilinogen Normalmg/dL (NORMAL) Urine Leukocyte Esterase Negative (NEGATIVE) Urine RBC 0-2/hpf (0-2) Urine WBC 0-5/hpf (0-5) Urine Epithelial Cells None/hpf (NONE-MOD) Urine Crystals None seen (NONE SEEN) Urine Bacteria None/hpf (NONE-FEW) Urine Hyaline Casts None/lpf (NONE) Urine Granular Casts None seen (NONE SEEN) Urine Waxy Casts None seen (NONE SEEN) Urine Red Blood Cell Casts None seen (NONE SEEN) Urine White Blood Cell Casts None seen (NONE SEEN) Urine Mucus None seen (None Seen) Urine Trichomonas None seen (NONE SEEN) Urine Yeast None (NONE SEEN) Urinalysis Comment None Urine Culture Reflexed Not indicated Test 12/30/16 17:30 12/30/16 22:30 12/31/16 05:10 Thyroid Stimulating Hormone (TSH) 2.740uIU/mL (0.450-4.500) Free Thyroxine 1.41ng/dL (0.82-1.77) Troponin T < 0.010ug/L (0.0-0.011) White Blood Count 6.0th/mm3 (3.8-10.1) Red Blood Count 3.35mil/mm3 (3.90-5.20) Hemoglobin 10.0g/dL (12.0-15.6) Hematocrit 30.8% (35.0-46.0) Mean Corpuscular Volume 91.9fL (81-100) Mean Corpuscular Hemoglobin 29.9pg (27.0-35.0) Mean Corpuscular Hemoglobin Concent 32.5% (32.0-37.0) Red Cell Distribution Width 14.6% (12.3-15.4) Platelet Count 228bil/L (150-400) Neutrophils (%) (Auto) 57.7% (40-74) Lymphocytes (%) (Auto) 26.9% (14-46) Monocytes (%) (Auto) 10.5% (4-12) Eosinophils (%) (Auto) 4.0% (0-5) Basophils (%) (Auto) 0.7% (0-3) Sodium Level 137mEq/L (134-144) Potassium Level 5.1mEq/L (3.5-5.2) Chloride Level 104mEq/L (97-108) Carbon Dioxide Level 19mmol/L (18-29) Blood Urea Nitrogen 24mg/dL (8-27) Creatinine 0.99mg/dL (0.57-1.00) Estimat Glomerular Filtration Rate 76mL/min (>59) Glucose Level 148mg/dL (60-99) Calcium Level 8.9mg/dL (8.5-10.1) Triglycerides Level 153mg/dL (0-149) Cholesterol Level 117mg/dL (100-199) LDL Cholesterol, Calculated 41.400mg/dL (0-99) VLDL Cholesterol 30.600mg/dL HDL Cholesterol 45mg/dL (>39) Cholesterol/HDL Ratio 2.60 (0.0-4.4) Discharge Medications Discharge Medications Amlodipine (Amlodipine) 10 Mg Tablet 10 MG PO DAILY (Reported) Apixaban (Eliquis) 2.5 Mg Tablet 2.5 MG PO BID Prescribed by: LANCE LERNER MD Atorvastatin (Lipitor) 20 Mg Tablet 20 MG PO DAILY (Reported) Flecainide Acetate (Flecainide Acetate) 50 Mg Tablet 50 MG PO BID Prescribed by: LANCE LERNER MD Levothyroxine (Levothyroxine) 50 Mcg Tablet 50 MCG PO DAILY (Reported) Metformin (Metformin) 500 Mg Tablet 1,000 MG PO BIDWM (Reported) Metformin (Metformin) 500 Mg Tablet 500 MG PO DAILYWL (Reported) Metoprolol Tartrate (Metoprolol Tartrate) 50 Mg Tablet 50 MG PO BID Prescribed by: LANCE LERNER MD Followup Plan Disposition: Home Follow-up plan 1. Followup with primary care provider in 5-7 days and for followup and further management of diabetes. 2. Followup with your parts washer () in 4-5 weeks as previously scheduled. Discharge Diet: Low fat, Low Sodium, Heart Healthy, Diabetic Discharge Activity: No restrictions Patient Instructions Seek immediate medical attention if any new or worsening signs or symptoms occur. Follow-up Provider: Aashish Tamayo MD Provider: Alvarado Marte MD Time spent 35 min copies to: Aashish Tamayo MD; Alvarado Marte MD, Masoud Dec 31, 2016 19:27
== END 2016-12-31 12:59 | disposition home or self-care (01) | DRG 310 ==
LOC: EDBD 14:17 → SED 14:17 → MPC 16:32
PROVIDERS: ADMIT Hospitalist; ATTEND Hospitalist
PROC: 3E0D7RZ Introduction of Antiarrhythmic into Mouth and Pharynx, Via Natural or Artificial Opening (ICD-10-PCS; principal; 2016-12-31)
DX: R00.1 Bradycardia, unspecified (principal); T44.7X5A Adverse effect of beta-adrenoreceptor antagonists, initial encounter; T46.2X5A Adverse effect of other antidysrhythmic drugs, initial encounter; I10 Essential (primary) hypertension; E11.9 Type 2 diabetes mellitus without complications; E78.00 Pure hypercholesterolemia, unspecified; E03.9 Hypothyroidism, unspecified; E86.0 Dehydration; I48.2 Chronic atrial fibrillation; E87.5 Hyperkalemia; Z79.01 Long term (current) use of anticoagulants